=== PATIENT | male | born 1945 | race Caucasian/White ===

== ENCOUNTER 2017-03-17 07:09 | Emergency (ER) | payer MEDICARE, OTHER ==
[~2017-03-17] VITALS: Ht 177.8 cm; Wt 90.0 kg
[2017-03-17 07:11] VITALS: Ht 177.8 cm; Wt 90.0 kg
[2017-03-17] MEDS ORDERED: OXYMETAZOLINE 0.05% 15 ML NAS SPRAY NASAL STA (07:49)
[2017-03-17] MEDS ORDERED: SILVER NITRATE SWAB TOP STA (07:57)
[2017-03-17] MEDS ORDERED: PETR5OIN3 TOP (08:18)
--- NOTE | 2017-03-17 08:26 | ERD ---
ER Documentation Chief Complaint Date/Time DATE: 03/17/17 TIME: 08:19 Chief Complaint left nostril epistaxis HPI This is a 72-year-old male with a history of hypertension presenting to the emergency department complaining of left nostril epistaxis for 2 hours. Patient states that he was blowing his nose really hard this morning while he was washing his face. Patient states that it was nonstop bleeding for the past 20 minutes and he stopped gauze in his nose and has not removed it since. Patient denies any blood thinners or aspirin. He denies headache. He has not tried any other medications for this. He denies any pain 0 out of 10 ROS All systems reviewed and are negative except as per history of present illness. Medications Home Meds Active Scripts Petrolatum,White* (Vaseline*) 5 Gm Oint.pack, 1 APPLIC TOP TID, #30 PACKET Prov:OPHELIA JACOBO Norman KAPLAN 03/17/17 PMhx/Soc History of Surgery: Yes (appendectomy) Anesthesia Reaction: No Hx Neurological Disorder: No Hx Respiratory Disorders: No Hx Cardiac Disorders: Yes (hypertension) Hx Psychiatric Problems: No Hx Miscellaneous Medical Probl: Yes Hx Alcohol Use: Yes (socially) Hx Substance Use: No Hx Tobacco Use: No Smoking Status: Never smoker Physical Exam Vitals Vital Signs Date Time Temp Pulse Resp B/P Pulse Ox O2 Delivery O2 Flow Rate FiO2 03/17/17 07:11 87.6 60 18 137/64 97 Physical Exam GENERAL: WD/WN, in no apparent distress, non-toxic appearing HENT: NC/AT, Left nostril has gauze intact, when I have removed the gauze there was a blood clot in the left nostril with very mild bleeding. EYES: Conjunctiva normal NECK: Supple. No meningeal signs PULM: Clear to auscultation bilaterally. Normal labored breathing CV: Regular rate and rhythm, no murmurs GI: Soft, non tender, non distended. Normal bowel sounds BACK: No masses EXT: No clubbing, cyanosis, or edema. NEURO: Awake and Alert SKIN: No petechiae or rashes PSYCH: Normal mood Results 24 hrs Current Medications Medications (Trade) Dose Ordered Sig/Radha Route PRN Reason Start Time Stop Time Status Last Admin Dose Admin Oxymetazoline HCl (Afrin [place]) 2 spray ONCE STAT NASAL 03/17/17 07:49 03/17/17 07:51 DC Silver Nitrate (Silver Nitrate Swabs) 5 stick ONCE STAT TOP 03/17/17 07:57 03/17/17 07:58 DC Procedures/MDM This is a 9-year-old male with a history of hypertension presenting to the emergency department complaining of epistaxis in his left nostril which is likely due to an anterior bleed from blowing his nose really hard this morning. On examination patient did have gauze intact in his nose, when I have removed the gauze there was a blood clot with some mild bleeding. 10 minutes of pressure was applied and the bleeding has stopped when I have reassessed him. I have applied oxymetazoline 2 sprays in the left nostril and continued to put pressure with a nose clip for that 20 minutes. When I have returned to reassess the patient, patient was not there and he eloped with the oxymetazoline that was at bedside. Patient was hemodynamically stable when I reassessed him before elopement. Departure Diagnosis: Primary Impression: Epistaxis Condition: Stable Patient Instructions: Epistaxis (Adult) Additional Instructions: FOLLOW UP WITH YOUR PRIMARY CARE PHYSICIAN TOMORROW.Return to this facility if you are not improving as expected. Return to this facility if you are not improving as expected. OPHELIA JACOBO PA-C Mar 17, 2017 08:26
== END 2017-03-17 09:50 | disposition left against medical advice (07) ==
LOC: FTE 07:09
DX: R04.0 Epistaxis (principal); I10 Essential (primary) hypertension
CPT/HCPCS: 99283